=== PATIENT | female | born 1935 | race Caucasian/White ===

== ENCOUNTER 2017-12-12 19:12 | Emergency (ER) | payer OTHER, MEDICARE ==
[~2017-12-12] VITALS: Ht 162.6 cm; Wt 55.8 kg
[2017-12-12] MEDS ORDERED: NORCO 5-325 TA1 EAC1 PO (21:17)
[2017-12-12] MEDS ORDERED: KEFLEX500 M1 PO (21:17)
[2017-12-12 21:43] VITALS: BP 108/62
== END 2017-12-12 21:44 | disposition home or self-care (01) ==
LOC: M.ERS 19:12
DX: S61.315A Laceration without foreign body of left ring finger with damage to nail, initial encounter (principal); Z87.440 Personal history of urinary (tract) infections; Z88.0 Allergy status to penicillin; W23.0XXA Caught, crushed, jammed, or pinched between moving objects, initial encounter; Y93.89 Activity, other specified; Y92.89 Other specified places as the place of occurrence of the external cause; Y99.8 Other external cause status

== ENCOUNTER 2017-12-13 10:56 | Emergency (ER) | payer MEDICARE, OTHER ==
[~2017-12-13] VITALS: Ht 160 cm; Wt 55.8 kg
[~2017-12-13 10:56] MED LIST: KEFLEX500 M1 PO; NORCO 5-325 TA1 EAC1 PO
[2017-12-13 12:00] VITALS: BP 118/54
== END 2017-12-13 12:06 | disposition home or self-care (01) ==
LOC: M.ERS 10:56
DX: S67.194D Crushing injury of right ring finger, subsequent encounter (principal); X58.XXXD Exposure to other specified factors, subsequent encounter; Z87.440 Personal history of urinary (tract) infections; Z88.0 Allergy status to penicillin